=== PATIENT | female | born 1965 | race Caucasian/White ===

== ENCOUNTER 2023-07-25 20:52 | Emergency (ER) | payer MEDICAID, SELFPAY ==
[2023-07-25 20:53] VITALS: BP 166/86; PULSE 93; RESP 20; TEMP 36.7; O2SAT 97; BMI 22.8
[2023-07-25 21:09] VITALS: BMI 22.8
--- NOTE | 2023-07-25 21:11 | XR_ITS ---
PROCEDURE INFORMATION: Exam: XR Right Hand Exam date and time: 07/25/2023 9:29 PM Age: 58 years old Clinical indication: Pain; Hand; Right; Additional info: Fal TECHNIQUE: Imaging protocol: Radiologic exam of the right hand. Views: 3 or more views. COMPARISON: No relevant prior studies available. FINDINGS: Bones/joints: There is an angulated fracture of the distal aspect of the 5th metacarpal. No additional fracture or dislocation. Soft tissues: Soft tissue swelling overlying the lateral hand. IMPRESSION: 1. There is an angulated fracture of the distal aspect of the 5th metacarpal. No additional fracture or dislocation. 2. Soft tissue swelling overlying the lateral hand.
--- NOTE | 2023-07-25 21:11 | XR_ITS ---
PROCEDURE INFORMATION: Exam: XR Right Wrist Exam date and time: 07/25/2023 9:31 PM Age: 58 years old Clinical indication: Pain; Wrist; Right; Additional info: Fall TECHNIQUE: Imaging protocol: Radiologic exam of the right wrist. Views: 3 or more views. COMPARISON: CR Hand R 07/25/2023 9:29 PM FINDINGS: Bones/joints: Acute fracture distal aspect 5th metacarpal. No additional fracture or dislocation. Soft tissues: Normal. IMPRESSION: Acute fracture distal aspect 5th metacarpal. No additional fracture or dislocation.
[2023-07-25 21:16] VITALS: BP 166/86
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
[2023-07-25 23:21] VITALS: BP 142/72; PULSE 84; RESP 18; TEMP 36.7; O2SAT 97
== END 2023-07-25 23:24 | disposition home or self-care (01) ==
PROVIDERS: Emergency Provider Emergency Medicine; PCP Nurse Practitioner
DX: S62.336A Displaced fracture of neck of fifth metacarpal bone, right hand, initial encounter for closed fracture (principal); J44.9 Chronic obstructive pulmonary disease, unspecified; F17.200 Nicotine dependence, unspecified, uncomplicated; W17.89XA Other fall from one level to another, initial encounter
CPT/HCPCS: 26605; 73110; 73130; 99283